=== PATIENT | male | born 1975 | race Hispanic/Latino ===

== ENCOUNTER 2017-07-24 09:33 | Emergency (ER) | payer OTHER, BC ==
[2017-07-24 09:52] VITALS: RESP 18; TEMP 97.8; O2SAT 98
[2017-07-24] MEDS ORDERED: Oxycodone/Acetaminophen 5/325 mg Tab PO STA (10:21)
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
--- NOTE | 2017-07-24 11:49 | RAD ---
PROCEDURE: Cervical Spine Radiographs. HISTORY: Pain. COMPARISON: None. FINDINGS: BONES: Alignment maintained. No fracture. Dens Intact. Anterior cervical spondylosis C4-C5 and C6 DISC SPACES: Minimal disc space narrowing C4-5 and C5-6. SOFT TISSUES: Normal. No prevertebral soft tissue swelling. OTHER FINDINGS: C4-5 and C5-6 apophyseal joint mild hyper trophic arthrosis inferred. No marked encroachment on the foramina appreciated IMPRESSION: No fracture or subluxation. Minimal cervical disc space narrowing as above Mild cervical apophyseal joint hypertrophic arthrosis.
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
[2017-07-24 12:26] VITALS: BP 133/74; PULSE 84
== END 2017-07-24 12:26 | disposition home or self-care (01) ==
LOC: ED 09:33
DX: S39.012A Strain of muscle, fascia and tendon of lower back, initial encounter (principal); V43.52XA Car driver injured in collision with other type car in traffic accident, initial encounter; M54.2 Cervicalgia; R51 Headache